=== PATIENT | female | born 1950 | race Caucasian/White ===

== ENCOUNTER → 2016-03-21 | Outpatient (CLI) | payer MEDICARE | END | disposition home or self-care (01) | LOC: ECT 11:18 | DX: F31.4 Bipolar disorder, current episode depressed, severe, without psychotic features (principal); I10 Essential (primary) hypertension; E11.9 Type 2 diabetes mellitus without complications; E78.5 Hyperlipidemia, unspecified; M79.7 Fibromyalgia; I70.0 Atherosclerosis of aorta; M50.30 Other cervical disc degeneration, unspecified cervical region; E03.9 Hypothyroidism, unspecified; J45.909 Unspecified asthma, uncomplicated; M54.17 Radiculopathy, lumbosacral region; Z79.82 Long term (current) use of aspirin ==

== ENCOUNTER 2016-03-23 09:25 | Outpatient (RCR) | payer MEDICARE | END 2016-03-27 | disposition home or self-care (01) | LOC: ECT 09:25 | DX: F31.4 Bipolar disorder, current episode depressed, severe, without psychotic features (principal); I10 Essential (primary) hypertension; E11.9 Type 2 diabetes mellitus without complications; M79.7 Fibromyalgia; I70.0 Atherosclerosis of aorta; M50.30 Other cervical disc degeneration, unspecified cervical region; J45.909 Unspecified asthma, uncomplicated; M54.17 Radiculopathy, lumbosacral region ==

== ENCOUNTER 2016-03-28 06:01 | Outpatient (RCR) | payer MEDICARE ==
[~2016-03-28] VITALS: Ht 162.6 cm; Wt 59.0 kg
[2016-03-30] MEDS ORDERED: Succinylcholine 20mg/ml 10ml vial ONE (06:02)
[2016-03-30] MEDS ORDERED: Methohexital Sodium Syr 100mg/10ml IVP ONE (06:02)
[2016-03-30] MEDS ORDERED: Midazolam 2mg/2ml Inj ONE (06:02)
[2016-03-30] MEDS ORDERED: NS 550ML IV ONE (06:02)
[2016-04-02] MEDS ORDERED: NS 550ML IV ONE (12:00)
[2016-04-02] MEDS ORDERED: Methohexital Sodium Syr 100mg/10ml IVP ONE (12:00)
[2016-04-02] MEDS ORDERED: Succinylcholine 20mg/ml 10ml vial ONE (12:00)
[2016-04-02] MEDS ORDERED: Midazolam 2mg/2ml Inj ONE (12:00)
[2016-04-02] MEDS ORDERED: Ketorolac 30mg Inj ONE (12:00)
[2016-04-04] MEDS ORDERED: Succinylcholine 20mg/ml 10ml vial ONE (08:00)
[2016-04-04] MEDS ORDERED: Methohexital Sodium Syr 100mg/10ml IVP ONE (08:00)
[2016-04-04] MEDS ORDERED: NS 550ML IV ONE (08:00)
[2016-04-04] MEDS ORDERED: Midazolam 2mg/2ml Inj ONE (08:00)
[2016-04-04] MEDS ORDERED: Ketorolac 30mg Inj ONE (08:00)
[2016-04-06] MEDS ORDERED: Succinylcholine 20mg/ml 10ml vial ONE (12:00)
[2016-04-06] MEDS ORDERED: Methohexital Sodium Syr 100mg/10ml IVP ONE (12:00)
[2016-04-06] MEDS ORDERED: Midazolam 2mg/2ml Inj ONE (12:00)
[2016-04-06] MEDS ORDERED: NS 550ML IV ONE (12:00)
[2016-04-06] MEDS ORDERED: Ketorolac 30mg Inj ONE (12:00)
[2016-04-09] MEDS ORDERED: Methohexital Sodium Syr 100mg/10ml IVP ONE (08:00)
[2016-04-09] MEDS ORDERED: Midazolam 2mg/2ml Inj ONE (08:00)
[2016-04-09] MEDS ORDERED: Ketorolac 30mg Inj ONE (08:00)
[2016-04-09] MEDS ORDERED: Succinylcholine 20mg/ml 10ml vial ONE (08:00)
[2016-04-09] MEDS ORDERED: NS 550ML IV ONE (08:00)
[2016-04-09] MEDS ORDERED: Atropine Sulfate 0.4mg/ml inj IVP PRN (20:00)
[2016-04-11] MEDS ORDERED: Ketorolac 30mg Inj ONE (12:30)
[2016-04-11] MEDS ORDERED: Succinylcholine 20mg/ml 10ml vial ONE (12:30)
[2016-04-11] MEDS ORDERED: Methohexital Sodium Syr 100mg/10ml IVP ONE (12:30)
[2016-04-11] MEDS ORDERED: Midazolam 2mg/2ml Inj ONE (12:30)
[2016-04-11] MEDS ORDERED: NS 550ML IV ONE (12:30)
[2016-04-11] MEDS ORDERED: Atropine Sulfate 0.4mg/ml inj IVP PRN (17:30)
[2016-04-13] MEDS ORDERED: Methohexital Sodium Syr 100mg/10ml IVP ONE (20:11)
[2016-04-13] MEDS ORDERED: NS 550ML IV ONE (20:11)
[2016-04-13] MEDS ORDERED: Succinylcholine 20mg/ml 10ml vial ONE (20:11)
[2016-04-13] MEDS ORDERED: Ketorolac 30mg Inj ONE (20:11)
[2016-04-16] MEDS ORDERED: Ketorolac 60mg Inj ONE (06:02)
[2016-04-16] MEDS ORDERED: Methohexital Sodium Syr 100mg/10ml IVP ONE (06:02)
[2016-04-16] MEDS ORDERED: Succinylcholine 20mg/ml 10ml vial ONE (06:02)
[2016-04-16] MEDS ORDERED: NS 550ML IV ONE (06:02)
[2016-04-18] MEDS ORDERED: NS 550ML IV ONE (06:02)
[2016-04-18] MEDS ORDERED: Succinylcholine 20mg/ml 10ml vial ONE (06:02)
[2016-04-18] MEDS ORDERED: Ketorolac 60mg Inj ONE (06:02)
[2016-04-18] MEDS ORDERED: Methohexital Sodium Syr 100mg/10ml IVP ONE (06:02)
[2016-04-20] MEDS ORDERED: Methohexital Sodium Syr 100mg/10ml IVP ONE (22:34)
[2016-04-20] MEDS ORDERED: NS 550ML IV ONE (22:34)
[2016-04-20] MEDS ORDERED: Ketorolac 30mg Inj ONE (22:34)
[2016-04-20] MEDS ORDERED: Succinylcholine 20mg/ml 10ml vial ONE (22:34)
== END 2016-04-24 | disposition home or self-care (01) ==
LOC: ECT 06:01
DX: F33.2 Major depressive disorder, recurrent severe without psychotic features (principal)
CPT/HCPCS: 90870; J0330; J1885; J2250; J7040

== ENCOUNTER 2016-04-25 11:45 | Outpatient (RCR) | payer MEDICARE ==
[~2016-04-25] VITALS: Ht 162.6 cm; Wt 59.0 kg
[2016-04-25] MEDS ORDERED: Methohexital Sodium Syr 100mg/10ml IVP ONE ×2 (11:46)
[2016-04-25] MEDS ORDERED: Ketorolac 30mg Inj ONE (11:46)
[2016-04-25] MEDS ORDERED: NS 550ML IV ONE ×2 (11:46)
[2016-04-25] MEDS ORDERED: Succinylcholine 20mg/ml 10ml vial ONE ×2 (11:46)
[2016-04-25] MEDS ORDERED: Ketorolac 60mg Inj ONE (11:46)
== END 2016-05-25 | disposition home or self-care (01) ==
LOC: ECT 11:45
DX: F33.2 Major depressive disorder, recurrent severe without psychotic features (principal)
CPT/HCPCS: 90870; J0330; J1885; J7040

== ENCOUNTER 2016-05-28 11:44 | Outpatient (RCR) | payer MEDICARE ==
[~2016-05-28] VITALS: Ht 162.6 cm; Wt 59.0 kg
[2016-05-28] MEDS ORDERED: NS 550ML IV ONE (11:45)
[2016-05-28] MEDS ORDERED: Ketorolac 60mg Inj ONE (11:45)
[2016-05-28] MEDS ORDERED: Succinylcholine 20mg/ml 10ml vial ONE (11:45)
[2016-05-28] MEDS ORDERED: Methohexital Sodium Syr 100mg/10ml IVP ONE (11:45)
== END 2016-06-24 | disposition home or self-care (01) ==
LOC: ECT 11:44
DX: F33.2 Major depressive disorder, recurrent severe without psychotic features (principal)
CPT/HCPCS: 90870; J0330; J7040

== ENCOUNTER 2016-06-25 05:26 | Outpatient (RCR) | payer MEDICARE ==
[~2016-06-25] VITALS: Ht 162.6 cm; Wt 59.0 kg
[2016-06-25] MEDS ORDERED: Methohexital Sodium Syr 100mg/10ml IVP ONE (05:27)
[2016-06-25] MEDS ORDERED: NS 550ML IV ONE (05:27)
[2016-06-25] MEDS ORDERED: Succinylcholine 20mg/ml 10ml vial ONE (05:27)
[2016-06-25] MEDS ORDERED: Ketorolac 60mg Inj ONE (05:27)
[2016-07-20] MEDS ORDERED: Succinylcholine 20mg/ml 10ml vial ONE (07:00)
[2016-07-20] MEDS ORDERED: NS 550ML IV ONE (07:00)
[2016-07-20] MEDS ORDERED: Ketorolac 60mg Inj ONE (07:00)
[2016-07-20] MEDS ORDERED: Methohexital Sodium Syr 100mg/10ml IVP ONE (07:00)
== END 2016-07-25 | disposition home or self-care (01) ==
LOC: ECT 05:26
DX: F33.2 Major depressive disorder, recurrent severe without psychotic features (principal)
CPT/HCPCS: 90870; J0330; J7040

== ENCOUNTER 2016-08-15 07:45 | Outpatient (RCR) | payer MEDICARE ==
[~2016-08-15] VITALS: Ht 162.6 cm; Wt 59.0 kg
[2016-08-15] MEDS ORDERED: Methohexital Sodium Syr 100mg/10ml IVP ONE (07:46)
[2016-08-15] MEDS ORDERED: Succinylcholine 20mg/ml 10ml vial ONE (07:46)
[2016-08-15] MEDS ORDERED: NS 550ML IV ONE (07:46)
[2016-08-15] MEDS ORDERED: Ketorolac 60mg Inj ONE (07:46)
== END 2016-08-24 | disposition home or self-care (01) ==
LOC: ECT 07:45
DX: F33.2 Major depressive disorder, recurrent severe without psychotic features (principal)
CPT/HCPCS: 90870; J0330; J7040

== ENCOUNTER 2016-09-05 08:53 | Outpatient (RCR) | payer MEDICARE ==
[~2016-09-05] VITALS: Ht 162.6 cm; Wt 59.0 kg
[2016-09-05] MEDS ORDERED: NS 550ML IV ONE (08:54)
[2016-09-05] MEDS ORDERED: Methohexital Sodium Syr 100mg/10ml IVP ONE (08:54)
[2016-09-05] MEDS ORDERED: Ketorolac 60mg Inj ONE (08:54)
[2016-09-05] MEDS ORDERED: Succinylcholine 20mg/ml 10ml vial ONE (08:54)
== END 2016-09-24 | disposition home or self-care (01) ==
LOC: ECT 08:53
DX: F33.2 Major depressive disorder, recurrent severe without psychotic features (principal)
CPT/HCPCS: 90870; J0330; J7040

== ENCOUNTER 2016-10-03 07:36 | Outpatient (RCR) | payer MEDICARE ==
[~2016-10-03] VITALS: Ht 162.6 cm; Wt 59.1 kg
[2016-10-03] MEDS ORDERED: Methohexital Sodium Syr 100mg/10ml IVP ONE (07:37)
[2016-10-03] MEDS ORDERED: Ketorolac 60mg Inj ONE (07:37)
[2016-10-03] MEDS ORDERED: Midazolam 2mg/2ml Inj ONE (07:37)
[2016-10-03] MEDS ORDERED: NS 550ML IV ONE (07:37)
[2016-10-03] MEDS ORDERED: Succinylcholine 20mg/ml 10ml vial ONE (07:37)
== END 2016-10-25 | disposition home or self-care (01) ==
LOC: ECT 07:36
DX: F33.2 Major depressive disorder, recurrent severe without psychotic features (principal)
CPT/HCPCS: 90870; J0330; J2250; J7040

== ENCOUNTER 2016-10-31 08:56 | Outpatient (RCR) | payer MEDICARE ==
[~2016-10-31] VITALS: Ht 162.6 cm; Wt 59.1 kg
[2016-10-31] MEDS ORDERED: Methohexital Sodium Syr 100mg/10ml IVP ONE (08:57)
[2016-10-31] MEDS ORDERED: NS 500ML IV ONE (08:57)
[2016-10-31] MEDS ORDERED: Succinylcholine 20mg/ml 10ml vial ONE (08:57)
[2016-10-31] MEDS ORDERED: Ketorolac 60mg Inj ONE (08:57)
[2016-10-31] MEDS ORDERED: Sodium Chloride 500ML 500 ML IV ONE (16:45)
== END 2016-11-24 | disposition home or self-care (01) ==
LOC: ECT 08:56
DX: F33.2 Major depressive disorder, recurrent severe without psychotic features (principal)
CPT/HCPCS: 90870; J0330; J7040

== ENCOUNTER 2017-09-02 05:41 | Outpatient (RCR) | payer MEDICARE ==
[~2017-09-02] VITALS: Ht 162.6 cm; Wt 64.0 kg
[2017-09-02] MEDS ORDERED: Succinylcholine 20mg/ml 10ml vial ONE (05:42)
[2017-09-02] MEDS ORDERED: Ketorolac 60mg Inj ONE (05:42)
[2017-09-02] MEDS ORDERED: NS 500ML ONE (05:42)
[2017-09-02] MEDS ORDERED: Methohexital Sodium Syr 100mg/10ml IVP ONE (05:42)
[2017-09-02] MEDS ORDERED: Sodium Chloride 500ML 500 ML IV ONE (11:28)
[2017-09-02 11:30] VITALS: BP 170/89
[2017-09-02 11:35] VITALS: BP 169/77
[2017-09-02 11:40] VITALS: BP 197/74
[2017-09-02 11:45] VITALS: BP 192/87
[2017-09-02 11:55] VITALS: BP 197/71
[2017-09-04] MEDS ORDERED: Methohexital Sodium Syr 100mg/10ml IVP ONE (06:00)
[2017-09-04] MEDS ORDERED: Ketorolac 60mg Inj ONE (06:00)
[2017-09-04] MEDS ORDERED: Succinylcholine 20mg/ml 10ml vial ONE (06:00)
[2017-09-04] MEDS ORDERED: NS 500ML ONE (06:00)
[2017-09-04 10:50] VITALS: BP 169/81
[2017-09-04 10:55] VITALS: BP 149/75
[2017-09-04 11:00] VITALS: BP 146/65
[2017-09-04 11:05] VITALS: BP 134/66
[2017-09-04 11:10] VITALS: BP 131/63
[2017-09-06] MEDS ORDERED: Ketorolac 60mg Inj ONE (08:00)
[2017-09-06] MEDS ORDERED: NS 500ML ONE (08:00)
[2017-09-06] MEDS ORDERED: Methohexital Sodium Syr 100mg/10ml IVP ONE (08:00)
[2017-09-06] MEDS ORDERED: Succinylcholine 20mg/ml 10ml vial ONE (08:00)
[2017-09-06 08:40] VITALS: BP 147/88
[2017-09-06] MEDS ORDERED: Sodium Chloride 500ML 500 ML IV ONE (08:52)
[2017-09-06 08:55] VITALS: BP 168/84
[2017-09-06 09:00] VITALS: BP 141/70
[2017-09-06 09:05] VITALS: BP 134/69
[2017-09-06 09:10] VITALS: BP 129/69
[2017-09-09] MEDS ORDERED: NS 500ML ONE (08:00)
[2017-09-09] MEDS ORDERED: Succinylcholine 20mg/ml 10ml vial ONE (08:00)
[2017-09-09] MEDS ORDERED: Methohexital Sodium Syr 100mg/10ml IVP ONE (08:00)
[2017-09-09] MEDS ORDERED: Ketorolac 60mg Inj ONE (08:00)
[2017-09-09] MEDS ORDERED: Sodium Chloride 500ML 500 ML IV ONE (10:32)
[2017-09-09 10:35] VITALS: BP 158/75
[2017-09-09 10:40] VITALS: BP 152/73
[2017-09-09 10:45] VITALS: BP 146/67
[2017-09-09 10:50] VITALS: BP 141/68
[2017-09-09 11:12] VITALS: BP 134/60
[2017-09-11] MEDS ORDERED: NS 500ML ONE (08:00)
[2017-09-11] MEDS ORDERED: Succinylcholine 20mg/ml 10ml vial ONE (08:00)
[2017-09-11] MEDS ORDERED: Methohexital Sodium Syr 100mg/10ml IVP ONE (08:00)
[2017-09-11] MEDS ORDERED: Ketorolac 60mg Inj ONE (08:00)
[2017-09-11 10:51] VITALS: BP 137/79
[2017-09-11] MEDS ORDERED: Sodium Chloride 500ML 500 ML IV ONE (11:05)
[2017-09-11 11:10] VITALS: BP 178/84
[2017-09-11 11:15] VITALS: BP 167/83
[2017-09-11 11:20] VITALS: BP 160/78
[2017-09-11 11:25] VITALS: BP 148/70
[2017-09-13] MEDS ORDERED: NS 500ML ONE (07:00)
[2017-09-13] MEDS ORDERED: Ketorolac 60mg Inj ONE (07:00)
[2017-09-13] MEDS ORDERED: Methohexital Sodium Syr 100mg/10ml IVP ONE (07:00)
[2017-09-13] MEDS ORDERED: Succinylcholine 20mg/ml 10ml vial ONE (07:00)
[2017-09-13 09:24] VITALS: BP 153/79
[2017-09-13] MEDS ORDERED: Sodium Chloride 500ML 500 ML IV ONE (09:41)
[2017-09-13 09:45] VITALS: BP 153/79
[2017-09-13 09:50] VITALS: BP 153/79
[2017-09-13 09:55] VITALS: BP 153/79
[2017-09-13 10:00] VITALS: BP 154/80
[2017-09-18] MEDS ORDERED: Succinylcholine 20mg/ml 10ml vial ONE (07:00)
[2017-09-18] MEDS ORDERED: Methohexital Sodium Syr 100mg/10ml IVP ONE (07:00)
[2017-09-18] MEDS ORDERED: NS 500ML ONE (07:00)
[2017-09-18] MEDS ORDERED: Ketorolac 60mg Inj ONE (07:00)
[2017-09-18 10:31] VITALS: BP 132/73
[2017-09-18 10:50] VITALS: BP 154/73
[2017-09-18 10:55] VITALS: BP 142/67
[2017-09-18 11:00] VITALS: BP 137/67
[2017-09-18 11:05] VITALS: BP 136/67
[2017-09-18] MEDS ORDERED: Sodium Chloride 500ML 500 ML IV ONE (15:00)
[2017-09-20] MEDS ORDERED: NS 500ML ONE (07:00)
[2017-09-20] MEDS ORDERED: Ketorolac 60mg Inj ONE (07:00)
[2017-09-20] MEDS ORDERED: Methohexital Sodium Syr 100mg/10ml IVP ONE (07:00)
[2017-09-20] MEDS ORDERED: Succinylcholine 20mg/ml 10ml vial ONE (07:00)
[2017-09-20 08:32] VITALS: BP 149/76
[2017-09-20 08:45] VITALS: BP 165/87
[2017-09-20] MEDS ORDERED: Sodium Chloride 500ML 500 ML IV ONE (08:45)
[2017-09-20 08:50] VITALS: BP 156/78
[2017-09-20 08:55] VITALS: BP 140/70
[2017-09-20 09:00] VITALS: BP 141/64
[2017-09-23] MEDS ORDERED: Methohexital Sodium Syr 100mg/10ml IVP ONE (08:00)
[2017-09-23] MEDS ORDERED: NS 500ML ONE (08:00)
[2017-09-23] MEDS ORDERED: Ketorolac 60mg Inj ONE (08:00)
[2017-09-23] MEDS ORDERED: Succinylcholine 20mg/ml 10ml vial ONE (08:00)
[2017-09-23 09:51] VITALS: BP 163/85
[2017-09-23 10:05] VITALS: BP 169/84
[2017-09-23] MEDS ORDERED: Sodium Chloride 500ML 500 ML IV ONE (10:05)
[2017-09-23 10:10] VITALS: BP 166/76
[2017-09-23 10:15] VITALS: BP 158/78
[2017-09-23 10:20] VITALS: BP 158/72
== END 2017-09-24 | disposition home or self-care (01) ==
LOC: ECT 05:41
DX: F33.2 Major depressive disorder, recurrent severe without psychotic features (principal)
CPT/HCPCS: 90870; J0330; J7040

== ENCOUNTER 2017-09-25 07:58 | Outpatient (RCR) | payer MEDICARE ==
[~2017-09-25] VITALS: Ht 162.6 cm; Wt 64.0 kg
[2017-09-25] MEDS ORDERED: NS 500ML ONE ×2 (07:59)
[2017-09-25] MEDS ORDERED: Succinylcholine 20mg/ml 10ml vial ONE ×2 (07:59)
[2017-09-25] MEDS ORDERED: Ketorolac 60mg Inj ONE ×2 (07:59)
[2017-09-25] MEDS ORDERED: Methohexital Sodium Syr 100mg/10ml IVP ONE ×2 (07:59)
[2017-09-25] MEDS ORDERED: Sodium Chloride 500ML 500 ML IV ONE (11:34)
[2017-09-25 11:35] VITALS: BP 147/66
[2017-09-25 11:40] VITALS: BP 144/70
[2017-09-25 11:45] VITALS: BP 141/71
[2017-09-25 11:50] VITALS: BP 144/72
[2017-09-27 08:36] VITALS: BP 144/81
[2017-09-27] MEDS ORDERED: Sodium Chloride 500ML 500 ML IV ONE (08:51)
[2017-09-27 08:55] VITALS: BP 155/79
[2017-09-27 09:00] VITALS: BP 148/79
[2017-09-27 09:05] VITALS: BP 136/68
[2017-09-27 09:10] VITALS: BP 139/68
[2017-10-04] MEDS ORDERED: NS 500ML ONE (08:00)
[2017-10-04] MEDS ORDERED: Methohexital Sodium Syr 100mg/10ml IVP ONE (08:00)
[2017-10-04] MEDS ORDERED: Ketorolac 60mg Inj IM ONE (08:00)
[2017-10-04] MEDS ORDERED: Succinylcholine 20mg/ml 10ml vial ONE (08:00)
[2017-10-04 08:23] VITALS: BP 133/79
[2017-10-04] MEDS ORDERED: Sodium Chloride 500ML 500 ML IV ONE (08:42)
[2017-10-04 08:45] VITALS: BP 141/72
[2017-10-04 08:50] VITALS: BP 135/66
[2017-10-04 08:55] VITALS: BP 130/71
[2017-10-04 09:00] VITALS: BP 136/68
[2017-10-14] MEDS ORDERED: Ketorolac 60mg Inj IM ONE (08:00)
[2017-10-14] MEDS ORDERED: Methohexital Sodium Syr 100mg/10ml IVP ONE (08:00)
[2017-10-14] MEDS ORDERED: NS 500ML ONE (08:00)
[2017-10-14] MEDS ORDERED: Succinylcholine 20mg/ml 10ml vial ONE (08:00)
[2017-10-14 08:44] VITALS: BP 131/73
[2017-10-14] MEDS ORDERED: Sodium Chloride 500ML 500 ML IV ONE (08:57)
[2017-10-14 09:00] VITALS: BP 131/73
[2017-10-14 09:05] VITALS: BP 131/73
[2017-10-14 09:10] VITALS: BP 144/71
[2017-10-14 09:15] VITALS: BP 139/63
== END 2017-10-25 | disposition home or self-care (01) ==
LOC: ECT 07:58
DX: F33.2 Major depressive disorder, recurrent severe without psychotic features (principal)
CPT/HCPCS: 90870; J0330; J2405; J7040

== ENCOUNTER 2017-10-30 07:51 | Outpatient (RCR) | payer MEDICARE ==
[~2017-10-30] VITALS: Ht 162.6 cm; Wt 64.0 kg
[2017-10-30] MEDS ORDERED: NS 500ML ONE (07:52)
[2017-10-30] MEDS ORDERED: Ketorolac 60mg Inj IM ONE (07:52)
[2017-10-30] MEDS ORDERED: Succinylcholine 20mg/ml 10ml vial ONE (07:52)
[2017-10-30] MEDS ORDERED: Methohexital Sodium Syr 100mg/10ml IVP ONE (07:52)
[2017-10-30 10:13] VITALS: BP 136/76
[2017-10-30] MEDS ORDERED: Sodium Chloride 500ML 500 ML IV ONE (10:30)
[2017-10-30 10:35] VITALS: BP 165/77
[2017-10-30 10:40] VITALS: BP 138/66
[2017-10-30 10:45] VITALS: BP 133/65
[2017-10-30 10:50] VITALS: BP 137/69
[2017-11-22] MEDS ORDERED: Methohexital Sodium Syr 100mg/10ml IVP ONE (06:00)
[2017-11-22] MEDS ORDERED: Succinylcholine 20mg/ml 10ml vial ONE (06:00)
[2017-11-22] MEDS ORDERED: Ketorolac 60mg Inj IM ONE (06:00)
[2017-11-22] MEDS ORDERED: NS 500ML ONE (06:00)
[2017-11-22 10:25] VITALS: BP 137/78
[2017-11-22] MEDS ORDERED: Sodium Chloride 500ML 500 ML IV ONE (10:38)
[2017-11-22 10:40] VITALS: BP 164/75
[2017-11-22 10:45] VITALS: BP 149/69
[2017-11-22 10:50] VITALS: BP 148/70
[2017-11-22 10:55] VITALS: BP 148/68
== END 2017-11-24 | disposition home or self-care (01) ==
LOC: ECT 07:51
DX: F33.2 Major depressive disorder, recurrent severe without psychotic features (principal)
CPT/HCPCS: 90870; J0330; J2405; J7040

== ENCOUNTER 2017-12-23 07:31 | Outpatient (RCR) | payer MEDICARE ==
[~2017-12-23] VITALS: Ht 162.6 cm; Wt 64.3 kg
[2017-12-23] MEDS ORDERED: Succinylcholine 20mg/ml 10ml vial ONE (07:32)
[2017-12-23] MEDS ORDERED: Methohexital Sodium Syr 100mg/10ml IVP ONE (07:32)
[2017-12-23] MEDS ORDERED: Ketorolac 60mg Inj IM ONE (07:32)
[2017-12-23] MEDS ORDERED: NS 500ML ONE (07:32)
[2017-12-23 10:24] VITALS: BP 133/79
[2017-12-23] MEDS ORDERED: Atropine Sulfate 0.4mg/ml inj IVP PRN (10:43)
[2017-12-23] MEDS ORDERED: Sodium Chloride 500ML 500 ML IV ONE (10:43)
[2017-12-23 10:45] VITALS: BP 151/71
[2017-12-23 10:50] VITALS: BP 150/70
[2017-12-23 10:55] VITALS: BP 143/65
[2017-12-23 11:00] VITALS: BP 141/66
== END 2017-12-25 | disposition home or self-care (01) ==
LOC: ECT 07:31
DX: F33.2 Major depressive disorder, recurrent severe without psychotic features (principal)
CPT/HCPCS: 90870; J0330; J2405; J7040

== ENCOUNTER 2018-01-20 06:41 | Outpatient (RCR) | payer MEDICARE ==
[~2018-01-20] VITALS: Ht 162.6 cm; Wt 64.0 kg
[2018-01-20] MEDS ORDERED: Methohexital Sodium Syr 100mg/10ml IVP ONE (06:42)
[2018-01-20] MEDS ORDERED: NS 500ML ONE (06:42)
[2018-01-20] MEDS ORDERED: Succinylcholine 20mg/ml 10ml vial ONE (06:42)
[2018-01-20] MEDS ORDERED: Ketorolac 60mg Inj IM ONE (06:42)
[2018-01-20 09:51] VITALS: BP 142/80
[2018-01-20] MEDS ORDERED: Sodium Chloride 500ML 500 ML IV ONE (10:03)
[2018-01-20 10:05] VITALS: BP 158/80
[2018-01-20 10:10] VITALS: BP 150/73
[2018-01-20 10:15] VITALS: BP 134/66
[2018-01-20 10:20] VITALS: BP 133/65
== END 2018-01-24 | disposition home or self-care (01) ==
LOC: ECT 06:41
DX: F33.2 Major depressive disorder, recurrent severe without psychotic features (principal)
CPT/HCPCS: 90870; J0330; J2405; J7040

== ENCOUNTER 2018-02-19 05:17 | Outpatient (RCR) | payer MEDICARE ==
[~2018-02-19] VITALS: Ht 30.5 cm; Wt 0.5 kg
[2018-02-19] MEDS ORDERED: NS 500ML ONE (05:18)
[2018-02-19] MEDS ORDERED: Methohexital Sodium Syr 100mg/10ml IVP ONE (05:18)
[2018-02-19] MEDS ORDERED: Ketorolac 30mg Inj ONE (05:18)
[2018-02-19] MEDS ORDERED: Succinylcholine 20mg/ml 10ml vial ONE (05:18)
[2018-02-19 09:44] VITALS: BP 126/73
[2018-02-19] MEDS ORDERED: Sodium Chloride 500ML 500 ML IV ONE (10:00)
[2018-02-19 10:05] VITALS: BP 154/74
[2018-02-19 10:10] VITALS: BP 149/72
[2018-02-19 10:15] VITALS: BP 128/62
[2018-02-19 10:20] VITALS: BP 126/60
== END 2018-02-24 | disposition home or self-care (01) ==
LOC: ECT 05:17
DX: F33.2 Major depressive disorder, recurrent severe without psychotic features (principal); E78.5 Hyperlipidemia, unspecified; E03.9 Hypothyroidism, unspecified
CPT/HCPCS: 90870; J0330; J1885; J2405; J7040

== ENCOUNTER 2018-03-19 06:28 | Outpatient (RCR) | payer MEDICARE ==
[~2018-03-19] VITALS: Ht 30.5 cm; Wt 0.5 kg
[2018-03-19] MEDS ORDERED: Ketorolac 60mg Inj IM ONE (06:29)
[2018-03-19] MEDS ORDERED: Succinylcholine 20mg/ml 10ml vial ONE (06:29)
[2018-03-19] MEDS ORDERED: NS 500ML ONE (06:29)
[2018-03-19] MEDS ORDERED: Methohexital Sodium Syr 100mg/10ml IVP ONE (06:29)
[2018-03-19 10:34] VITALS: BP 132/75
[2018-03-19 10:50] VITALS: BP 154/73
[2018-03-19 10:55] VITALS: BP 155/72
[2018-03-19 11:00] VITALS: BP 141/68
[2018-03-19 11:05] VITALS: BP 147/65
== END 2018-03-27 | disposition home or self-care (01) ==
LOC: ECT 06:28
DX: F33.2 Major depressive disorder, recurrent severe without psychotic features (principal); E04.9 Nontoxic goiter, unspecified; G24.9 Dystonia, unspecified; Z86.018 Personal history of other benign neoplasm
CPT/HCPCS: 90870; J0330; J2405; J7040

== ENCOUNTER 2018-04-16 04:45 | Outpatient (RCR) | payer MEDICARE ==
[~2018-04-16] VITALS: Ht 30.5 cm; Wt 0.5 kg
[2018-04-16] MEDS ORDERED: NS 500ML ONE (04:46)
[2018-04-16] MEDS ORDERED: Methohexital Sodium Syr 100mg/10ml IVP ONE (04:46)
[2018-04-16] MEDS ORDERED: Ketorolac 60mg Inj IM ONE (04:46)
[2018-04-16] MEDS ORDERED: Succinylcholine 20mg/ml 10ml vial ONE (04:46)
[2018-04-16 10:21] VITALS: BP 152/78
[2018-04-16 10:40] VITALS: BP 164/73
[2018-04-16 10:45] VITALS: BP 170/78
[2018-04-16 10:50] VITALS: BP 142/67
[2018-04-16 10:55] VITALS: BP 139/64
== END 2018-04-24 | disposition home or self-care (01) ==
LOC: ECT 04:45
DX: F33.2 Major depressive disorder, recurrent severe without psychotic features (principal)
CPT/HCPCS: 90870; J0330; J2405; J7040

== ENCOUNTER 2018-05-19 04:40 | Outpatient (RCR) | payer MEDICARE ==
[~2018-05-19] VITALS: Ht 30.5 cm; Wt 0.5 kg
[2018-05-19] MEDS ORDERED: NS 500ML ONE (04:41)
[2018-05-19] MEDS ORDERED: Methohexital Sodium Syr 100mg/10ml IVP ONE (04:41)
[2018-05-19] MEDS ORDERED: Succinylcholine 20mg/ml 10ml vial ONE (04:41)
[2018-05-19] MEDS ORDERED: Ketorolac 60mg Inj IM ONE (04:41)
[2018-05-19 11:20] VITALS: BP_SYST 132; BP_SYST 142; BP_DIAS 71; BP_DIAS 74
[2018-05-19 11:25] VITALS: BP 141/67
[2018-05-19 11:30] VITALS: BP 144/64
[2018-05-19 11:35] VITALS: BP 137/69
== END 2018-05-25 | disposition home or self-care (01) ==
LOC: ECT 04:40
DX: F33.2 Major depressive disorder, recurrent severe without psychotic features (principal)
CPT/HCPCS: 90870; J0330; J2405; J7040

== ENCOUNTER 2018-09-05 09:00 | Outpatient (RCR) | payer MEDICARE ==
[~2018-09-05] VITALS: Ht 162.6 cm; Wt 64.0 kg
[2018-09-05] MEDS ORDERED: Ketorolac 60mg Inj IM ONE ×2 (09:01)
[2018-09-05] MEDS ORDERED: Succinylcholine 20mg/ml 10ml vial ONE ×2 (09:01)
[2018-09-05] MEDS ORDERED: Methohexital Sodium Syr 100mg/10ml IVP ONE (09:01)
[2018-09-05] MEDS ORDERED: NS 500ML ONE ×2 (09:01)
[2018-09-05] MEDS ORDERED: Methohexital Sodium 500mg Vial IVP ONE (09:01)
[2018-09-05 10:01] VITALS: BP 156/91
[2018-09-05 10:12] VITALS: BP 168/78
[2018-09-05 10:17] VITALS: BP 157/78
[2018-09-05 10:22] VITALS: BP 146/74
[2018-09-05 10:27] VITALS: BP 137/68
[2018-09-08] MEDS ORDERED: Ketorolac 60mg Inj IM ONE (09:00)
[2018-09-08] MEDS ORDERED: Succinylcholine 20mg/ml 10ml vial ONE (09:00)
[2018-09-08] MEDS ORDERED: NS 500ML ONE (09:00)
[2018-09-08] MEDS ORDERED: Methohexital Sodium Syr 100mg/10ml IVP ONE (09:00)
[2018-09-08 10:15] VITALS: BP_SYST 158; BP_SYST 172; BP_DIAS 79; BP_DIAS 91
[2018-09-08 10:20] VITALS: BP 140/71
[2018-09-08 10:25] VITALS: BP 137/72
[2018-09-08 10:30] VITALS: BP 137/71
[2018-09-10] MEDS ORDERED: Succinylcholine 20mg/ml 10ml vial ONE (06:00)
[2018-09-10] MEDS ORDERED: Methohexital Sodium Syr 100mg/10ml IVP ONE (06:00)
[2018-09-10] MEDS ORDERED: Ketorolac 30mg Inj ONE (06:00)
[2018-09-10] MEDS ORDERED: NS 500ML ONE (06:00)
[2018-09-10 10:16] VITALS: BP 171/92
[2018-09-10 10:28] VITALS: BP 173/98
[2018-09-10 10:33] VITALS: BP 155/68
[2018-09-10 10:38] VITALS: BP 140/63
[2018-09-10 10:42] VITALS: BP 137/64
[2018-09-12] MEDS ORDERED: Ketorolac 30mg Inj ONE (06:00)
[2018-09-12] MEDS ORDERED: Methohexital Sodium Syr 100mg/10ml IVP ONE (06:00)
[2018-09-12] MEDS ORDERED: Succinylcholine 20mg/ml 10ml vial ONE (06:00)
[2018-09-12] MEDS ORDERED: NS 500ML ONE (06:00)
[2018-09-12 09:35] VITALS: BP 155/87
[2018-09-12 09:50] VITALS: BP 167/82
[2018-09-12 09:55] VITALS: BP 154/76
[2018-09-12 10:00] VITALS: BP 137/68
[2018-09-12 10:05] VITALS: BP 135/64
[2018-09-15] MEDS ORDERED: Succinylcholine 20mg/ml 10ml vial ONE (07:00)
[2018-09-15] MEDS ORDERED: NS 500ML ONE (07:00)
[2018-09-15] MEDS ORDERED: Ketorolac 60mg Inj IM ONE (07:00)
[2018-09-15] MEDS ORDERED: Methohexital Sodium Syr 100mg/10ml IVP ONE (07:00)
[2018-09-15 11:01] VITALS: BP 156/87
[2018-09-15 11:11] VITALS: BP 176/93
[2018-09-15 11:16] VITALS: BP 165/67
[2018-09-15 11:21] VITALS: BP 141/76
[2018-09-15 11:26] VITALS: BP 142/71
[2018-09-17] MEDS ORDERED: NS 500ML ONE (09:00)
[2018-09-17] MEDS ORDERED: Methohexital Sodium Syr 100mg/10ml IVP ONE (09:00)
[2018-09-17] MEDS ORDERED: Ketorolac 60mg Inj IM ONE (09:00)
[2018-09-17] MEDS ORDERED: Succinylcholine 20mg/ml 10ml vial ONE (09:00)
[2018-09-17 09:54] VITALS: BP 132/67
[2018-09-17 10:10] VITALS: BP 156/71
[2018-09-17 10:15] VITALS: BP 136/65
[2018-09-17 10:20] VITALS: BP 136/60
[2018-09-17 10:25] VITALS: BP 134/58
[2018-09-19 10:14] VITALS: BP 142/78
[2018-09-19 10:30] VITALS: BP 148/65
[2018-09-19 10:35] VITALS: BP 134/63
[2018-09-19 10:40] VITALS: BP 138/66
[2018-09-19 10:45] VITALS: BP 134/64
[2018-09-22] MEDS ORDERED: Succinylcholine 20mg/ml 10ml vial ONE (06:00)
[2018-09-22] MEDS ORDERED: Ketorolac 60mg Inj IM ONE (06:00)
[2018-09-22] MEDS ORDERED: NS 500ML ONE (06:00)
[2018-09-22] MEDS ORDERED: Methohexital Sodium Syr 100mg/10ml IVP ONE (06:00)
[2018-09-22 09:36] VITALS: BP 143/82
[2018-09-22 09:49] VITALS: BP 181/91
[2018-09-22 09:54] VITALS: BP 177/78
[2018-09-22 09:59] VITALS: BP 148/68
[2018-09-22 10:04] VITALS: BP 141/70
[2018-09-23] MEDS ORDERED: NS 500ML ONE (06:00)
[2018-09-23] MEDS ORDERED: Succinylcholine 20mg/ml 10ml vial ONE (06:00)
[2018-09-23] MEDS ORDERED: Methohexital Sodium Syr 100mg/10ml IVP ONE (06:00)
[2018-09-23] MEDS ORDERED: Ketorolac 60mg Inj IM ONE (06:00)
[2018-09-24] MEDS ORDERED: NS 500ML ONE (06:00)
[2018-09-24] MEDS ORDERED: Succinylcholine 20mg/ml 10ml vial ONE (06:00)
[2018-09-24] MEDS ORDERED: Ketorolac 60mg Inj IM ONE (06:00)
[2018-09-24] MEDS ORDERED: Methohexital Sodium Syr 100mg/10ml IVP ONE (06:00)
[2018-09-24 09:36] VITALS: BP 138/74
[2018-09-24 09:50] VITALS: BP 156/67
[2018-09-24 09:55] VITALS: BP 145/78
[2018-09-24 10:00] VITALS: BP 140/64
[2018-09-24 10:05] VITALS: BP 139/61
== END 2018-09-24 | disposition home or self-care (01) ==
LOC: ECT 09:00
DX: F33.2 Major depressive disorder, recurrent severe without psychotic features (principal)
CPT/HCPCS: 90870; J0330; J1885; J2405; J3490; J7040

== ENCOUNTER 2018-09-26 09:31 | Outpatient (RCR) | payer MEDICARE ==
[~2018-09-26] VITALS: Ht 162.6 cm; Wt 64.0 kg
[2018-09-26 08:24] VITALS: BP 138/80
[2018-09-26 08:40] VITALS: BP 134/93
[2018-09-26 08:45] VITALS: BP 162/77
[2018-09-26 08:50] VITALS: BP 136/66
[2018-09-26 08:55] VITALS: BP 133/63
[2018-09-26] MEDS ORDERED: Methohexital Sodium Syr 100mg/10ml IVP ONE ×2 (09:32)
[2018-09-26] MEDS ORDERED: Succinylcholine 20mg/ml 10ml vial ONE ×3 (09:32)
[2018-09-26] MEDS ORDERED: Ketorolac 60mg Inj IM ONE ×2 (09:32)
[2018-09-26] MEDS ORDERED: NS 500ML ONE ×2 (09:32)
[2018-09-29] MEDS ORDERED: NS 500ML ONE (06:00)
[2018-09-29] MEDS ORDERED: Methohexital Sodium Syr 100mg/10ml IVP ONE (06:00)
[2018-09-29] MEDS ORDERED: Succinylcholine 20mg/ml 10ml vial ONE (06:00)
[2018-09-29] MEDS ORDERED: Ketorolac 30mg Inj ONE (06:00)
[2018-09-29 10:06] VITALS: BP 141/80
[2018-09-29 10:20] VITALS: BP 164/81
[2018-09-29 10:25] VITALS: BP 155/75
[2018-09-29 10:30] VITALS: BP 147/74
[2018-09-29 10:35] VITALS: BP 149/71
[2018-10-06] MEDS ORDERED: Succinylcholine 20mg/ml 10ml vial ONE (06:00)
[2018-10-06] MEDS ORDERED: Ketorolac 30mg Inj ONE (06:00)
[2018-10-06] MEDS ORDERED: NS 500ML ONE (06:00)
[2018-10-06] MEDS ORDERED: Methohexital Sodium Syr 100mg/10ml IVP ONE (06:00)
[2018-10-06 08:48] VITALS: BP 135/80
[2018-10-06 08:51] VITALS: BP 135/80
[2018-10-06 08:56] VITALS: BP 141/68
[2018-10-06 09:01] VITALS: BP 141/67
[2018-10-06 09:06] VITALS: BP 130/68
[2018-10-20 10:42] VITALS: BP 131/78
[2018-10-20] MEDS ORDERED: Atropine Sulfate 0.4mg/ml inj IVP PRN (11:03)
[2018-10-20 11:04] VITALS: BP 157/80
[2018-10-20 11:09] VITALS: BP 159/75
[2018-10-20 11:14] VITALS: BP 146/67
[2018-10-20 11:19] VITALS: BP 151/67
== END 2018-10-25 | disposition home or self-care (01) ==
LOC: ECT 09:31
DX: F33.2 Major depressive disorder, recurrent severe without psychotic features (principal)
CPT/HCPCS: 90870; J0330; J1885; J2405; J7040

== ENCOUNTER 2018-11-12 07:36 | Outpatient (RCR) | payer MEDICARE ==
[~2018-11-12] VITALS: Ht 30.5 cm; Wt 0.5 kg
[2018-11-12] MEDS ORDERED: NS 500ML ONE (07:37)
[2018-11-12] MEDS ORDERED: Succinylcholine 20mg/ml 10ml vial ONE (07:37)
[2018-11-12] MEDS ORDERED: Methohexital Sodium Syr 100mg/10ml IVP ONE (07:37)
[2018-11-12] MEDS ORDERED: Ketorolac 60mg Inj IM ONE (07:37)
[2018-11-12 10:45] VITALS: BP 155/87
[2018-11-12 11:00] VITALS: BP 155/87
[2018-11-12 11:05] VITALS: BP 153/76
[2018-11-12 11:10] VITALS: BP 149/73
[2018-11-12 11:15] VITALS: BP 149/77
== END 2018-11-24 | disposition home or self-care (01) ==
LOC: ECT 07:36
DX: F33.2 Major depressive disorder, recurrent severe without psychotic features (principal)
CPT/HCPCS: 90870; J0330; J2405; J7040

== ENCOUNTER 2018-12-10 05:07 | Outpatient (RCR) | payer MEDICARE ==
[~2018-12-10] VITALS: Ht 30.5 cm; Wt 0.5 kg
[2018-12-10] MEDS ORDERED: Succinylcholine 20mg/ml 10ml vial ONE (05:08)
[2018-12-10] MEDS ORDERED: Ketorolac 60mg Inj IM ONE (05:08)
[2018-12-10] MEDS ORDERED: NS 500ML ONE (05:08)
[2018-12-10] MEDS ORDERED: Methohexital Sodium Syr 100mg/10ml IVP ONE (05:08)
[2018-12-10 10:27] VITALS: BP 143/80
[2018-12-10 10:45] VITALS: BP 168/79
[2018-12-10 10:50] VITALS: BP 154/66
[2018-12-10 10:55] VITALS: BP 154/73
[2018-12-10 11:00] VITALS: BP 151/74
== END 2018-12-25 | disposition home or self-care (01) ==
LOC: ECT 05:07
DX: F33.2 Major depressive disorder, recurrent severe without psychotic features (principal)
CPT/HCPCS: 90870; J0330; J2405; J7040

== ENCOUNTER 2019-01-07 04:42 | Outpatient (RCR) | payer MEDICARE ==
[~2019-01-07] VITALS: Ht 162.6 cm; Wt 64.0 kg
[2019-01-07] MEDS ORDERED: Ketorolac 30mg Inj ONE (06:00)
[2019-01-07] MEDS ORDERED: NS 500ML ONE (06:00)
[2019-01-07] MEDS ORDERED: Succinylcholine 20mg/ml 10ml vial ONE (06:00)
[2019-01-07] MEDS ORDERED: Methohexital Sodium Syr 100mg/10ml IVP ONE (06:00)
[2019-01-07 11:05] VITALS: BP 154/83
[2019-01-07 11:20] VITALS: BP 165/82
[2019-01-07 11:25] VITALS: BP 145/71
[2019-01-07 11:30] VITALS: BP 154/79
[2019-01-07 11:35] VITALS: BP 163/74
== END 2019-01-24 | disposition home or self-care (01) ==
LOC: ECT 04:42
DX: F33.2 Major depressive disorder, recurrent severe without psychotic features (principal)
CPT/HCPCS: 90870; J0330; J1885; J2405; J7040

== ENCOUNTER 2019-02-04 06:57 | Outpatient (RCR) | payer MEDICARE ==
[~2019-02-04] VITALS: Ht 30.5 cm; Wt 0.5 kg
[2019-02-04] MEDS ORDERED: Ketorolac 60mg Inj IM ONE (06:58)
[2019-02-04] MEDS ORDERED: Methohexital Sodium Syr 100mg/10ml IVP ONE (06:58)
[2019-02-04] MEDS ORDERED: Succinylcholine 20mg/ml 10ml vial ONE (06:58)
[2019-02-04] MEDS ORDERED: NS 500ML ONE (06:58)
[2019-02-04 11:03] VITALS: BP 135/78
[2019-02-04 11:15] VITALS: BP 159/80
[2019-02-04 11:20] VITALS: BP 153/68
[2019-02-04 11:25] VITALS: BP 148/70
[2019-02-04 11:30] VITALS: BP 147/66
== END 2019-02-24 | disposition home or self-care (01) ==
LOC: ECT 06:57
DX: F33.2 Major depressive disorder, recurrent severe without psychotic features (principal)
CPT/HCPCS: 90870; J2405

== ENCOUNTER 2019-04-01 06:57 | Outpatient (RCR) | payer MEDICARE ==
[~2019-04-01] VITALS: Ht 162.6 cm; Wt 64.0 kg
[2019-04-01] MEDS ORDERED: NS 500ML ONE (06:58)
[2019-04-01] MEDS ORDERED: Succinylcholine 20mg/ml 10ml vial ONE (06:58)
[2019-04-01] MEDS ORDERED: Methohexital Sodium Syr 100mg/10ml IVP ONE (06:58)
[2019-04-01] MEDS ORDERED: Ketorolac 60mg Inj IM ONE (06:58)
[2019-04-01 10:29] VITALS: BP 141/75
[2019-04-01 10:40] VITALS: BP 165/80
[2019-04-01 10:45] VITALS: BP 146/70
[2019-04-01 10:50] VITALS: BP 144/70
[2019-04-01 10:55] VITALS: BP 146/73
== END 2019-04-25 | disposition home or self-care (01) ==
LOC: ECT 06:57
DX: F33.2 Major depressive disorder, recurrent severe without psychotic features (principal)
CPT/HCPCS: 90870; J0330; J2405; J7040

== ENCOUNTER 2019-04-29 06:05 | Outpatient (RCR) | payer MEDICARE ==
[~2019-04-29] VITALS: Ht 162.6 cm; Wt 64.0 kg
[~2019-04-29 06:05] MED LIST: Ketorolac 30mg Inj ONE; Methohexital Sodium Syr 100mg/10ml IVP ONE; NS 500ML ONE; Succinylcholine 20mg/ml 10ml vial ONE
[2019-04-29 10:23] VITALS: BP 142/79
[2019-04-29 10:37] VITALS: BP 161/80
[2019-04-29 10:42] VITALS: BP 160/77
[2019-04-29 10:47] VITALS: BP 154/76
[2019-04-29 10:52] VITALS: BP 157/70
== END 2019-05-26 | disposition home or self-care (01) ==
LOC: ECT 06:05
DX: F33.2 Major depressive disorder, recurrent severe without psychotic features (principal)
CPT/HCPCS: 90870; J0330; J1885; J2405; J7040

== ENCOUNTER 2019-06-03 05:21 | Outpatient (RCR) | payer MEDICARE ==
[~2019-06-03] VITALS: Ht 162.6 cm; Wt 64.0 kg
[2019-06-03] MEDS ORDERED: Ketorolac 60mg Inj IM ONE (05:22)
[2019-06-03] MEDS ORDERED: Succinylcholine 20mg/ml 10ml vial ONE (05:22)
[2019-06-03] MEDS ORDERED: NS 500ML ONE (05:22)
[2019-06-03] MEDS ORDERED: Methohexital Sodium Syr 100mg/10ml IVP ONE (05:22)
[2019-06-03 10:08] VITALS: BP 152/82
[2019-06-03 10:20] VITALS: BP 164/77
[2019-06-03 10:25] VITALS: BP 144/60
[2019-06-03 10:30] VITALS: BP 148/69
[2019-06-03 10:35] VITALS: BP 151/69
== END 2019-06-25 | disposition home or self-care (01) ==
LOC: ECT 05:21
DX: F33.2 Major depressive disorder, recurrent severe without psychotic features (principal)
CPT/HCPCS: 90870; J0330; J2405; J7040

== ENCOUNTER 2019-07-08 05:17 | Outpatient (RCR) | payer MEDICARE ==
[~2019-07-08] VITALS: Ht 30.5 cm; Wt 0.5 kg
[2019-07-08] MEDS ORDERED: Succinylcholine 20mg/ml 10ml vial ONE (05:18)
[2019-07-08] MEDS ORDERED: NS 500ML ONE (05:18)
[2019-07-08] MEDS ORDERED: Ketorolac 60mg Inj IM ONE (05:18)
[2019-07-08] MEDS ORDERED: Methohexital Sodium Syr 100mg/10ml IVP ONE (05:18)
[2019-07-08 11:28] VITALS: BP 146/83
[2019-07-08 11:49] VITALS: BP 157/86
[2019-07-08] MEDS ORDERED: Lidocaine 2% 100mg/5ml Carp IV PRN (11:49)
[2019-07-08] MEDS ORDERED: Atropine Sulfate 0.4mg/ml inj IVP PRN (11:49)
[2019-07-08 11:54] VITALS: BP 154/65
[2019-07-08 11:59] VITALS: BP 148/71
[2019-07-08 12:04] VITALS: BP 148/65
== END 2019-07-26 | disposition home or self-care (01) ==
LOC: ECT 05:17
DX: F33.2 Major depressive disorder, recurrent severe without psychotic features (principal)
CPT/HCPCS: 90870; J0330; J2405; J7040

== ENCOUNTER 2019-08-19 05:14 | Outpatient (RCR) | payer MEDICARE ==
[~2019-08-19] VITALS: Ht 162.6 cm; Wt 64.0 kg
[2019-08-19] MEDS ORDERED: NS 500ML ONE (06:00)
[2019-08-19] MEDS ORDERED: Ketorolac 30mg Inj ONE (06:00)
[2019-08-19] MEDS ORDERED: Succinylcholine 20mg/ml 10ml vial ONE (06:00)
[2019-08-19] MEDS ORDERED: Methohexital Sodium Syr 100mg/10ml IVP ONE (06:00)
[2019-08-19 11:04] VITALS: BP 153/89
[2019-08-19] MEDS ORDERED: Lidocaine 2% 100mg/5ml Carp IV PRN (11:24)
[2019-08-19] MEDS ORDERED: Atropine Sulfate 0.4mg/ml inj IVP PRN (11:24)
[2019-08-19 11:25] VITALS: BP 167/77
[2019-08-19 11:30] VITALS: BP 163/74
[2019-08-19 11:35] VITALS: BP 162/71
[2019-08-19 11:40] VITALS: BP 158/78
== END 2019-08-25 | disposition home or self-care (01) ==
LOC: ECT 05:14
DX: F33.2 Major depressive disorder, recurrent severe without psychotic features (principal)
CPT/HCPCS: 90870; J0330; J1885; J2405; J7040

== ENCOUNTER 2019-09-30 06:01 | Outpatient (RCR) | payer MEDICARE ==
[2019-09-30] VITALS (7 sets, daily range): BP systolic 158–176; BP diastolic 71–85
[~2019-09-30] VITALS: Ht 162.6 cm; Wt 64.0 kg
[2019-09-30] MEDS ORDERED: Ketorolac 60mg Inj IM ONE (06:02)
[2019-09-30] MEDS ORDERED: Methohexital Sodium Syr 100mg/10ml IVP ONE (06:02)
[2019-09-30] MEDS ORDERED: Succinylcholine 20mg/ml 10ml vial ONE (06:02)
[2019-09-30] MEDS ORDERED: NS 500ML ONE (06:02)
[2019-09-30] MEDS ORDERED: Lidocaine 2% 100mg/5ml Carp IV PRN (10:49)
[2019-09-30] MEDS ORDERED: Atropine Sulfate 0.4mg/ml inj IVP PRN (10:49)
== END 2019-10-26 | disposition home or self-care (01) ==
LOC: ECT 06:01
DX: F33.2 Major depressive disorder, recurrent severe without psychotic features (principal)
CPT/HCPCS: 90870; J0330; J2405; J7040

== ENCOUNTER 2019-11-18 05:11 | Outpatient (RCR) | payer MEDICARE ==
[2019-11-18] VITALS (7 sets, daily range): BP systolic 149–183; BP diastolic 73–84
[~2019-11-18] VITALS: Ht 162.6 cm; Wt 64.0 kg
[2019-11-18] MEDS ORDERED: Ketorolac 30mg Inj ONE (05:12)
[2019-11-18] MEDS ORDERED: Succinylcholine 20mg/ml 10ml vial ONE (05:12)
[2019-11-18] MEDS ORDERED: Methohexita Syr 100mg/10ml IVP ONE (05:12)
[2019-11-18] MEDS ORDERED: NS 500ML ONE (05:12)
[2019-11-18] MEDS ORDERED: Atropine Sulfate 0.4mg/ml inj IVP PRN (10:44)
== END 2019-11-25 | disposition home or self-care (01) ==
LOC: ECT 05:11
DX: F33.2 Major depressive disorder, recurrent severe without psychotic features (principal)
CPT/HCPCS: 90870; J0330; J1885; J2405; J7040

== ENCOUNTER 2020-01-06 08:19 | Outpatient (RCR) | payer MEDICARE ==
[~2020-01-06] VITALS: Ht 162.6 cm; Wt 64.0 kg
[2020-01-06] VITALS (7 sets, daily range): BP systolic 156–171; BP diastolic 68–84
[~2020-01-06 08:19] MED LIST changes: +Methohexita Syr 100mg/10ml IVP ONE; -Methohexital Sodium Syr 100mg/10ml IVP ONE
[2020-01-06] MEDS ORDERED: Atropine Sulfate 0.4mg/ml inj IVP PRN (11:14)
== END 2020-01-25 | disposition home or self-care (01) ==
LOC: ECT 08:19
DX: F33.2 Major depressive disorder, recurrent severe without psychotic features (principal)
CPT/HCPCS: 90870; J0330; J1885; J2405; J7040

== ENCOUNTER 2020-03-09 05:09 | Outpatient (RCR) | payer MEDICARE ==
[~2020-03-09] VITALS: Ht 162.6 cm; Wt 64.0 kg
[2020-03-09] VITALS (7 sets, daily range): BP systolic 147–170; BP diastolic 65–82
[2020-03-09] MEDS ORDERED: Methohexita Syr 100mg/10ml IVP ONE (05:10)
[2020-03-09] MEDS ORDERED: NS 500ML ONE (05:10)
[2020-03-09] MEDS ORDERED: Ketorolac 30mg Inj ONE (05:10)
[2020-03-09] MEDS ORDERED: Succinylcholine 20mg/ml 10ml vial ONE (05:10)
== END 2020-03-27 | disposition home or self-care (01) ==
LOC: ECT 05:09
DX: F33.2 Major depressive disorder, recurrent severe without psychotic features (principal)
CPT/HCPCS: J0330; J1885; J2405; J7040